=== PATIENT | female | born 1940 | race Caucasian/White ===

== ENCOUNTER 2018-08-01 19:43 | Emergency (ER) | payer MEDICARE ==
[~2018-08-01] VITALS: Ht 165.1 cm; Wt 72.6 kg
[~2018-08-01 19:43] MED LIST: ARICEPT10 MG PO; ASPIR 8181 MG PO; LISINOPRIL40 MG OP
[2018-08-01] MEDS ORDERED: SODIUM CHLORIDE 0.9% 1000ML 1,000 ML ONE ×2 (19:51→20:06)
[2018-08-01] MEDS ORDERED: ACETAMINOPHEN 1000 MG/100 ML 100 ML IV ONE (19:51)
[2018-08-01] MEDS ORDERED: ACETAMINOPHEN 1000 MG/100 ML IV ONE (20:01)
[2018-08-01] MEDS ORDERED: CEFTRIAXONE SOD 1 GM VIAL ONE (20:06)
[2018-08-01] MEDS ORDERED: SODIUM CHLORIDE 0.9% 1000ML 1,000 ML IV ONE ×3 (20:15→20:45)
[2018-08-01] MEDS ORDERED: CEFTRIAXONE SOD 1 GM VIAL IV ONE (20:15)
[2018-08-01 20:18] LABS: BASOPHILS % 0.1 % (0.0-1.0); HEMOGLOBIN 13.1 g/dL (12.0-16.0); LYMPHOCYTES # (AUTO) 0.9 (1.0-3.2); LYMPHOCYTES % 4.6 % (18.0-39.1); MEAN CORPUSCULAR HEMOGLOBIN 25.8 pg (28-32); MEAN CORPUSCULAR VOLUME 80.7 fL (81-99); MONOCYTES # (AUTO) 0.6 (0.2-0.8); MONOCYTES % 3.2 % (4.4-11.3); NEUTROPHILS # (AUTO) 17.5 (2.1-6.9); NEUTROPHILS % 91.3 % (38.7-80.0); PLATELET COUNT 247 x10e3/uL (140-360); RED BLOOD COUNT 5.08 x10e6/uL (3.6-5.1); RED CELL DISTRIBUTION WIDTH 15.7 % (11.7-14.4)
[2018-08-01 20:22] LABS: CLARITY,URINE SL CLOUDY (CLEAR); COLOR,URINE YELLOW (YELLOW); KETONES,URINE NEGATIVE (NEGATIVE); LEUKOCYTE ESTERASE ,URINE TRACE (NEGATIVE); NITRITE,URINE NEGATIVE (NEGATIVE); PROTEIN,URINE DIPSTICK TRACE (NEGATIVE)
[2018-08-01 20:23] LABS: BILIRUBIN,URINE NEGATIVE (NEGATIVE); URINE UROBILINOGEN 1 mg/dL (0.2 - 1)
[2018-08-01 20:32] LABS: ALBUMIN 3.1 g/dL (3.5-5.0); ALBUMIN/GLOBULIN RATIO 0.8 (0.8-2.0); ANION GAP 20.1 mmol/L (8-16); CREATININE, SERUM 2.49 mg/dL (0.57-1.11); POTASSIUM 4.1 mmol/L (3.5-5.1)
[2018-08-01 20:38] LABS: CREATINE KINASE MB 2.1 ng/mL (0-5.0)
[2018-08-01 20:39] LABS: BACTERIA,URINE MANY /HPF; EPITHELIAL CELLS,URINE FEW /LPF; RBC,URINE 0-5 /HPF (0-5)
[2018-08-01 20:40] LABS: AMORPHOUS SEDIMENT,URINE MANY (FEW)
[2018-08-01 20:59] LABS: AMYLASE 54 U/L (25-125); LIPASE 22 U/L (8-78)
[2018-08-01] MEDS ORDERED: SODIUM CHLORIDE 0.9% 1000ML 1,000 ML IV SCH (21:30)
--- NOTE | 2018-08-01 22:48 | Diagnostic Imaging Report ---
EXAMINATION: CHEST SINGLE (PORTABLE) INDICATION: Fever. COMPARISON: None FINDINGS: TUBES and LINES: EKG leads overlie the chest. LUNGS: Lungs are not well inflated. There are bibasilar atelectasis. There is mild prominence of the central pulmonary vasculature, consistent with pulmonary venous congestion. PLEURA: Small right pleural effusion, moderate left pleural effusion. HEART AND MEDIASTINUM: Cardiac size is severely enlarged. There are atherosclerotic calcifications within the aorta. BONES AND SOFT TISSUES: No acute osseous lesion. Soft tissues are unremarkable. UPPER ABDOMEN: No free air under the diaphragm. IMPRESSION: Severe cardiomegaly, interstitial edema and bilateral pleural effusions. Signed by: Dr. Alvarez Matt M.D. on 08/01/2018 10:44 PM
--- NOTE | 2018-08-01 22:51 | Diagnostic Imaging Report ---
EXAM: CT Abdomen and Pelvis WITHOUT contrast INDICATION: Elevated LFTs. COMPARISON: None. TECHNIQUE: Abdomen and pelvis were scanned utilizing a multidetector helical scanner from the lung base to the pubic symphysis without administration of IV contrast. Absence of intravenous contrast decreases sensitivity for detection of focal lesions and vascular pathology. Coronal and sagittal reformations were obtained. Routine protocol was performed. IV CONTRAST: None. ORAL CONTRAST: Water RADIATION DOSE: Total DLP: 725.55 mGy*cm Estimated effective dose: (DLP x 0.015 x size factor) mSv COMPLICATIONS: None FINDINGS: LINES and TUBES: None. LOWER THORAX: Coronary artery disease present. There is a large/severe pericardial effusion. Small bilateral pleural effusions left greater than right and bibasilar atelectasis. HEPATOBILIARY: No focal hepatic lesions. No biliary ductal dilation. GALLBLADDER: There are stones in the gallbladder. No wall thickening. SPLEEN: No splenomegaly. PANCREAS: No focal masses or ductal dilatation. ADRENALS: No adrenal nodules KIDNEYS/URETERS: No hydronephrosis. No cystic or solid mass lesions. No stones. GI TRACT: No abnormal distention, wall thickening, or evidence of bowel obstruction. Appendix is normal. PELVIC ORGANS/BLADDER: Gil catheter decompresses the urinary bladder. Patient is a status post hysterectomy. LYMPH NODES: No lymphadenopathy. VESSELS: There is moderate atherosclerotic disease in the aorta and major arterial branches. PERITONEUM / RETROPERITONEUM: Small amount of free fluid in the pelvis. BONES: Diffuse demineralization. Chronic compression deformity of of T7.. SOFT TISSUES: Unremarkable. IMPRESSION: 1. Severe pericardial effusion, bilateral pleural effusions, atelectasis and mild interstitial fluid overload. 2. 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 Signed by: Dr. Alvarez Matt M.D. on 08/01/2018 10:48 PM
[2018-08-02] MEDS ORDERED: METRONIDAZOLE 500MG/NS 100ML 100 ML IV STA (00:17)
[2018-08-02] MEDS ORDERED: ACETAMINOPHEN325 M1 PO (00:33)
[2018-08-02] MEDS ORDERED: LISINOPRIL10 MG PO (00:33)
[2018-08-02] MEDS ORDERED: AMLODIPINE BESY10 MG PO (00:33)
[2018-08-02] MEDS ORDERED: MILK OF MA2400 MG/10 PO (00:33)
[2018-08-02] MEDS ORDERED: OMEPRAZOLE20 MG PO (00:33)
[2018-08-02] MEDS ORDERED: NAMENDA10 MG PO (00:33)
[2018-08-02] MEDS ORDERED: K DUR10 MEQ PO (00:33)
[2018-08-02] MEDS ORDERED: OXYBUTYNIN CHLO10 MG PO (00:33)
[2018-08-02] MEDS ORDERED: MULTIVITAMINS1 EAC6 PO (00:33)
[2018-08-02] MEDS ORDERED: CLOPIDOGREL75 MG PO (00:33)
[2018-08-02] MEDS ORDERED: ESIDRIX25 MG PO (00:33)
[2018-08-02] MEDS ORDERED: DONEPEZIL HCL10 MG PO (00:33)
[2018-08-02 01:49] VITALS: BP 105/63
== END 2018-08-02 01:57 | disposition short-term general hospital (02) ==
LOC: ER 19:43
DX: J90 Pleural effusion, not elsewhere classified (principal); K80.11 Calculus of gallbladder with chronic cholecystitis with obstruction; F03.90 Unspecified dementia, unspecified severity, without behavioral disturbance, psychotic disturbance, mood disturbance, and anxiety; I10 Essential (primary) hypertension; I25.2 Old myocardial infarction; I25.10 Atherosclerotic heart disease of native coronary artery without angina pectoris; K21.9 Gastro-esophageal reflux disease without esophagitis; Z86.73 Personal history of transient ischemic attack (TIA), and cerebral infarction without residual deficits; Z79.02 Long term (current) use of antithrombotics/antiplatelets; Z79.82 Long term (current) use of aspirin; R50.9 Fever, unspecified
CPT/HCPCS: 36415; 51700; 71045; 74176; 80053; 81001; 82150; 82550; 82553; 83605; 83690; 84484; 85025; 87040; 87071; 87086; 87205; 93005; 99284; J0696; J7030